=== PATIENT | female | born 1960 | race Caucasian/White ===

== ENCOUNTER 2016-12-02 09:12 | Emergency (ER) | payer BC ==
[2016-12-02 09:32] VITALS: BP 154/92
[2016-12-02] MEDS ORDERED: KETOROLAC TROMETHAMINE 60 MG/2 ML VIAL IM ONE ×2 (09:56→10:22)
--- NOTE | 2016-12-02 09:56 | ERNOTE ---
Lower Extremity HPI - Narrative Date of Service: 12/02/16 - General Lower Extremities Pain: knee: left - pain with full extension of leg Time Seen by Provider: 12/02/16 09:51 Source: patient Exam Limitations: no limitations - Immun/Allergies/Home Medications Allergies/Adverse Reactions: Allergies Allergy/AdvReac Type Severity Reaction Status Date / Time No Known Allergies Allergy Unverified 07/10/12 19:43 Home Medications: HOME MEDICATIONS Gabapentin [Neurontin] 300 mg PO DAILY 07/10/12 [Last Taken Unknown] Atorvastatin Calcium [Lipitor] 20 mg PO DAILY 09/20/12 [Last Taken Unknown] Metoprolol Succinate 50 mg PO BID 09/20/12 [Last Taken Unknown] Nitroglycerin [Nitrostat] 0.3 mg SL PRN PRN 09/20/12 [Last Taken Unknown] Aspirin 04/14/16 [Last Taken Unknown] Lhmey-Edkqfty-Unhlfzam Tablet 04/14/16 [Last Taken Unknown] HYDROcodone/ACETAMINOPHEN [Hydrocodon-Acetaminophen 5-325] 1 each PO TID PRN # 20 tablet 12/02/16 [Last Taken Unknown] - History of Present Illness Narrative: 56-year-old female presenting to the emergency room today. She stated that she was getting out of her van she hurt her knee. Patient does not remember how she hurt it. She states that she is not able to fully bear weight. Patient states that when she fully extends her leg totally flattened. It hurts the most. Date (Duration): 12/02/16 Occurred: yesterday Location of Incident: home Method of Injury: Reports: twisted - she thinks Reason for Fall: Denies: fainted, lost balance, slipped, tripped Loss of Consciousness: Reports: no loss of consciousness Modifying Factors - (Improves): Reports: immobilization - keeping flexed Modifying Factors - (Worsens): Reports: movement Associated Symptoms: Reports: unable to bear weight, weakness. Denies: snapping , popping sensation, dizzy/light headedness Other Injuries: Reports: none Review of Systems - Review of Systems Constitutional: Present: no symptoms reported, See HPI. Absent: recent illness , fever, chills EYE: Present: no symptoms reported, blurred vision Respiratory: Present: no symptoms reported Cardiology: Present: no symptoms reported Gastrointestinal/Abdominal: Present: no symptoms reported Genitourinary: Present: no symptoms reported Musculoskeletal: Present: See HPI, joint pain, joint swelling Skin: Present: no symptoms reported Neurological: Present: no symptoms reported Endocrine: Present: no symptoms reported Hematologic/Lymphatic: Present: no symptoms reported Psych: Present: no symptoms reported - Patient's Past Medical History Patient History - Surgical Procedures: Total Knee Replacement - right Physical Exam - Physical Exam Narrative: Patient's left knee has increased swelling and pain. Patient has increased pain when left leg is completely extended out as if she was laying flat. Patient states it feels better to flex her knee. Patients knee is tender to touch. General Appearance: Present: wd/wn Eye Exam: Normal inspection: bilateral Ears, Nose, Throat: Present: normal ENT inspection Neck: Present: normal inspection Respiratory: Present: no respiratory distress, normal breath sounds, lungs clear Cardiovascular/Chest: Present: regular rate, rhythm, no murmur, normal peripheral pulses Peripheral Pulses: N=norm/S=strong/W=weak/B=bound/A=absent: Dorsalis-pedis (R): Normal, Dorsalis-pedis (L): Normal Gastrointestinal/Abdominal: Present: normal bowel sounds, soft Back Exam: Present: normal inspection Extremity Exam: Present: decreased range of motion - left knee, , joint swelling - gen swelling of left knee. Skin Exam: Present: normal color Lymphatic Exam: Present: no adenopathy ED Progress - Vital Signs Vital Signs: Vital Signs 12/02/16 09:29 Temperature 36.5 C Pulse Rate 55 L Respiratory 14 Rate Blood Pressure 154/92 O2 Sat by Pulse 99 Oximetry - X-Ray X-Ray #1 X-Ray: knee Interpretation: Reviewed by me X-ray Comments: COMPARISONS: None available. Knee 3 Views LT * There is a cortical step-off at the subchondral bone on the lateral tibial plateau seen best on the oblique and lateral image, with slight minimal depression of the posterior aspect of the articular surface on the lateral view which is suggestive of a nondisplaced lateral tibial plateau fracture. There is no definite signs or cortical breakthrough at the metaphysis. Joint spaces are in gross normal alignment without subluxation or dislocation. Incidental degenerative changes of the medial compartment of the knee. Soft tissues are grossly normal. Large joint effusion noted in the suprapatellar bursa. IMPRESSION: 1. Lateral tibial plateau fracture suggested, with minimal depression of the posterior aspect of the articular surface as above. 2. Large joint effusion noted. Consider underlying internal derangement. 3. Medial compartment osteoarthritic change. Electronically signed by Christen Yeung M.D.. X-ray results were read to Dr. Thomas. He is instructed this provider to place a knee immobilizer on patients injured knee/leg, make her nonweight bearing for her to use crutches and follow-up with him tomorrow in the office. - Progress/Reassessment Chief Complaint: Lower Extremity Pain/ Injury Plan - Plan Plan: Patient stated that she called her orthopedist and has a scheduled apt for tomorrow 12/03/16. This provider spoke with Dr. Almeida regarding the patient' s diagnosis of a lateral tibial plateau fracture. Dr. Thomas would like patient to be placed in a left knee immobilizer be placed on nonweight bearing and to use crutches and follow-up with his office tomorrow. Departure Clinical Impression: Fracture of tibial plateau Qualifiers: Encounter type: initial encounter Fracture type: closed Laterality: left Qualified Code(s): S82.142A - Displaced bicondylar fracture of left tibia, initial encounter for closed fracture - Departure Disposition: Home Follow Up Needed Condition: Stable Instructions: Form - Excuse from Work, School, or Physical Activity, Nondisplaced Tibial Plateau Fracture Additional Instructions: Continue all previous home medications. May take [id number] Motrin for inflammation. Please follow-up with your orthopedist appointment. Remain non- weight bearing. Keep knee immobilizer on per Dr. Thomas. Continue to use her crutches and knee imobilizer as directed until you see your orthopedist. Referrals: Denia Gerard MD [Primary Care Provider] - Prescriptions: HYDROcodone/ACETAMINOPHEN [Hydrocodon-Acetaminophen 5-325] 1 each PO TID PRN # 20 tablet PRN Reason: Pain
--- OUTSIDE RECORDS SUMMARY | 2016-12-02 10:03 | XMS REPORT | Continuity of Care Document ---
:1960 Author Organization [facility] ([facility]) Address [address] [place] [address] Phone [phone] Care Team Providers Name Role Phone Unavailable Primary Care Provider Unavailable Source Comments This disclosure is being made pursuant to the Care Everywhere program, applicable federal and state laws, and may not contain all informaitonavailable regarding this patient.[facility] ([facility]) Active Allergies and Adverse Reactions No Active Allergies Current Medications Not on file Active Problems Problem Noted Date Contracture of joint, site unspecified 11/30/2006 Enthesopathy of wrist and carpus 11/23/2006 Pain in joint, forearm 10/26/2006 Social History Tobacco Use Types Packs/Day Years Used Date Never Assessed Last Filed Vital Signs Vital Sign Reading Time Taken Blood Pressure 142/78 01/29/2007 8:35 AM CDT Pulse 70 01/29/2007 8:35 AM CDT Temperature 35.8 C (96.44 F) 01/29/2007 8:35 AM CDT Respiratory Rate - - Height 1.77 m (5' 9.68") 10/26/2006 3:31 PM [employer] Weight 93.799 kg (206 lb 12.6 oz) 01/29/2007 8:35 AM CDT Body Mass Index 29.94 01/29/2007 8:35 AM CDT Oxygen Saturation - - Plan of Care Health Maintenance Due Date Last Done Comments HCV Screening 1960 Hepatitis B Vaccine (1 of 3 - Primary Series) 1960 Tdap Vaccine 1971 Lipid Disorder Screening 1978 MMR Vaccine 1978 Td Vaccine 1978 Cervical Cancer Screening 1990 Mammogram 2000 Colonoscopy 2010 Influenza Vaccine: Seasonal (#1) 03/31/2016 Results from Last 3 Months Not on file
== END 2016-12-02 11:15 | disposition home or self-care (01) ==
LOC: ER 09:12
PROC: 2W3RX1Z Immobilization of Left Lower Leg using Splint (ICD-10-PCS; principal; 2016-12-02)
DX: S82.142A Displaced bicondylar fracture of left tibia, initial encounter for closed fracture (principal); X58.XXXA Exposure to other specified factors, initial encounter; Y93.89 Activity, other specified; Y92.9 Unspecified place or not applicable